=== PATIENT | female | born 1945 | race Caucasian/White ===

== ENCOUNTER → 2023-09-10 13:15 | Outpatient (REF) | payer OTHER, SELFPAY | LOC: RAD 13:15 | PROVIDERS: ATTENDING PHYSICIAN Surgery Vascular Surgery; FAMILY PHYSICIAN Family Medicine | DX: I65.22 Occlusion and stenosis of left carotid artery (principal); I65.21 Occlusion and stenosis of right carotid artery | CPT/HCPCS: 93880 ==

== ENCOUNTER → 2024-10-05 13:01 | Outpatient (REF) | payer OTHER, SELFPAY | LOC: RAD 13:01 | PROVIDERS: ATTENDING PHYSICIAN Surgery Vascular Surgery; FAMILY PHYSICIAN Family Medicine | DX: I65.22 Occlusion and stenosis of left carotid artery (principal); I65.21 Occlusion and stenosis of right carotid artery | CPT/HCPCS: 93880 ==

== ENCOUNTER 2025-05-23 22:24 | Inpatient (IN) | payer OTHER, SELFPAY ==
[2025-05-23] VITALS (11 sets, daily range): BP systolic 145–225; BP diastolic 77–148; BMI 29.5
[2025-05-23 18:28] LABS: Hematocrit 45.6 % (37.0-47.0); Hemoglobin 14.8 g/dL (12.0-16.0); Mean Corp Hgb Conc. 32.5 g/dL (33.0-37.0); Mean Corpuscular Volume 94.0 fL (81.0-99.0); Nucleated Red Blood Cells % 0 %; Platelet Count 254 10^3/uL (130-400); Red Cell Dist. Width 13.2 % (11.5-14.5)
[2025-05-23 18:39] LABS: INR 1.07; PT 14.2 Sec (11.4-14.6)
[2025-05-23 18:40] LABS: APTT 31.4 Sec (23.4-35.0)
--- NOTE | 2025-05-23 18:51 | ED.GENMED ---
History of Present Illness
General
Chief Complaint: Breathing Problem
Source: patient
Exam Limitations: none
Time Seen by Provider: 05/23/25 18:41
History of Present Illness
History of Present Illness:
See MDM
Past History
Past History
ED Past Medical History: Arrthythmia, HTN, Hypercholesterolemia, Valvular disease (Mitral valve prolapse) and Psychiatric (Anxiety)
ED Past Surgical History: Appendectomy and Gynecological (Hysterectomy)
Social History
Tobacco: Non-smoker
Alcohol: None
Personal:
Living: with family
Family History
Family History: Hypertension; Negative Early CAD or Sudden
Phy Exam
Physical Exam
Physical Exam:
See MDM
Scores
Heart Failure Risk
Heart Failure Risk Score: Not Applicable
Course
Orders/Labs/Results
Orders:
Orders
05/23/25 17:40
Electrocardiogram (*1) Urgent
Reason for Study: Chest Pain
EKG- Treatment ONCE
05/23/25 18:17
Complete Blood Count/With Diff Urgent
Comprehensive Metabolic Panel Urgent
PTT Urgent
Prothrombin Time Urgent
Troponin I Urgent
05/23/25 18:52
Diltiazem HCl [Cardizem] 15 mg IV NOW STA
05/23/25 19:38
CR Chest - 2 Views Urgent
Comment:
Reason For Exam: SOB
05/23/25 20:39
Doxycycline [Vibramycin] 100 mg PO NOW STA
Metoprolol Xl [Toprol Xl] 25 mg PO NOW STA
05/23/25 20:44
Apixaban [Eliquis] 5 mg PO ONCE ONE
05/23/25 21:39
Ondansetron Injectable [Zofran] 4 mg IV NOW STA
Abnormal Lab Results
05/23/25
18:17
MCHC 32.5 L g/dL
(33.0-37.0)
Absolute Neuts (auto) 6.9 H 10^3/uL
(1.4-6.5)
Absolute Monos (auto) 1.0 H 10^3/uL
(0.1-0.6)
Lymphocytes % 17.3 L %
(20.5-51.1)
Monocytes % 10.1 H %
(1.7-9.3)
Sodium 134 L mmol/L
(135-145)
BUN 18 H mg/dl
(7-17)
Creatinine 1.1 H mg/dL
(0.6-1.0)
Glucose 120 H mg/dl
(70-99)
AST 74 H U/L
(14-36)
ALT 89 H U/L
(0-35)
05/23/25 18:17
05/23/25 18:17
Vital Signs
Initial and Last Documented VS:
Initial Vital Signs
Temp Pulse Resp Pulse Ox
97.7 F 124 20 97
05/23/25 17:41 05/23/25 17:41 05/23/25 17:41 05/23/25 17:41
Last Documented Vital Signs
Temp Pulse Resp BP Pulse Ox
97.7 F 105 18 159/109 94
05/23/25 17:41 05/23/25 21:06 05/23/25 21:06 05/23/25 20:51 05/23/25 20:52
MDM/Problems Addressed
Differential Diagnosis Includes:
Note:
CHIEF COMPLAINT(S)
Shortness of breath.
HISTORY OF PRESENT ILLNESS
The patient is an 80-year-old female with a history of atrial fibrillation, who presents with shortness of breath. The symptoms started the day before the visit, initially sporadic, but progressively worsened to the point where the patient felt
unable to take a deep breath. She reports a flutter-like sensation but initially attributed her symptoms to pulmonary issues. She underwent an ablation approximately 10 years ago and is not currently on any blood thinners. The patient recalls
experiencing similar symptoms, such as elevated blood pressure and breathing difficulties, during prior episodes of atrial fibrillation. She is on propranolol, a beta-darya, but notes right foot swelling with no accompanying leg or calf pain.
There are no reported fevers, coughs, chest pain, or sputum production. The patient has not screened for pneumonia or blood clots, but is aware these symptoms may indicate cardiac-related issues.
I did question her elevated blood pressure. Patient states she stopped taking her amlodipine on her own.
PHYSICAL EXAM
General: Alert, no acute distress.
Skin: Warm, dry.
Head: Normocephalic, atraumatic
Neck: Appears supple, trachea midline.
Eyes, Ears, Nose, Mouth, and Throat: Moist mucous membranes
Cardiovascular: No signs of cyanosis. Tachycardic and irregular
Respiratory: Respirations are non-labored. Lungs clear
Abdomen: Non-distended
Musculoskeletal: No deformities. No calf or thigh tenderness or swelling
Neurological: No focal neurological deficit observed.
Psychiatric: Cooperative, appropriate mood and affect.
ELECTROCARDIOGRAM (EKG)
My independent EKG interpretation is consistent with atrial fibrillation.
PLAN
1. Administer a dose of diltiazem to control the heart rate.
2. Perform a chest X-ray to rule out pneumonia or other pulmonary anomalies.
3. Re-evaluate for the potential need for a different beta-darya and anticoagulation therapy upon stabilization.
DIFFERENTIAL DIAGNOSIS
The Differential Diagnosis includes, in no particular order and is not limited to:
- Atrial Fibrillation
- Pneumonia
- Pulmonary Embolism
- Chronic Obstructive Pulmonary Disease (COPD)
- Congestive Heart Failure
- Valvular Heart Disease
- Hyperthyroidism
- Anemia
- Anxiety Disorder
- Myocardial Infarction
SUMMARY OF ENCOUNTER
The patient was seen in the emergency department due to acute shortness of breath, believed to be secondary to a recurrence of atrial fibrillation. Management focused on controlling the heart rate using diltiazem and ensuring no underlying pulmonary
cause through a chest X-ray. The return of atrial fibrillation led to considerations for reinitiating anticoagulation and potential changes in beta-darya therapy.
DISPOSITION
Admit
ASSESSMENT
Atrial fibrillation recurrence resulting in symptomatic shortness of breath.
EMERGENCY TREATMENTS ADMINISTERED
Diltiazem administered to control the heart rate.
MEDICATION RECONCILIATION
- One dose of diltiazem was administered.
- Prescribed propranolol.
MEDICAL DECISION MAKING
- Complexity of Data Reviewed: Chronic conditions affecting care: atrial fibrillation.
- Data:
- Category 1: My independent interpretation of EKG indicates atrial fibrillation.
- Category 3: Discussion of management with the patients office services manager, Dr. Meeks, for further treatment planning.
Patient initially felt comfortable going home. As she was about to be discharged, her heart rate increased again and she felt uncomfortable. Due to the uncontrolled A-fib, patient started on Cardizem drip. Will admit
*Pulse Oximetry
SaO2: 96
Oxygen Mode of Delivery: Room air
Patient hypoxic: no
*Critical Care Note
Total Time (30-74mins, 75-104mins- exclusive of procedures): Not Applicable
ED Attending Note
-
Portions of this chart may have been created with voice recognition software.� Occasional wrong word or��sound alike� substitutions may have occurred due to the inherent limitations of voice recognition software.
Discharge Plan
Departure
Patient Disposition: Admit
Date of Disposition: 05/23/25
Time of Disposition: 20:49
Admit to: Telemetry
Presentation/result/management discussed w/ accepting MD/DO: Hospitalist
Patient with high blood pressure during this ER visit?: Yes
Discharge Problem:
Afib, PNA (pneumonia)
Instructions: Chest Pain DCA Follow Up, BLOOD PRESSURE
Prescriptions:
New
Eliquis 5 mg tablet
5 mg PO BID Qty: 60 0RF
doxycycline hyclate 100 mg capsule
100 mg PO BID Qty: 14 0RF
metoprolol succinate [Toprol XL] 25 mg tablet extended release 24 hr
25 mg PO BID Qty: 60 0RF
No Action
alprazolam 0.5 MG tablet
0.5 mg PO TIDPRN PRN (Reason: anxiety)
Patient Comments:
07/04/2021: last filled 06/08/21, 90 tabs for 30 days from [id number]
thyroid (pork) [[place] Thyroid] 30 MG tablet
30 mg PO DAILY
Referrals:
Miri Rodriguez DO [Family Provider, Family Practice]
Interventions
Interventions:
*Risk Screen - Suicide Last Done: 05/23/25 17:41
*General Assessment Last Done: 05/23/25 17:41
*Neglect/Abuse Screening Last Done: 05/23/25 19:42
*ED- Fall Risk Assessment Last Done: 05/23/25 18:24
*ED COVID-19 Vaccine History Last Done: 05/23/25 18:24
*ED Influenza Vaccine History Last Done: 05/23/25 18:24
ED- Cardiac Assessment Last Done: 05/23/25 19:40
ED- Pulmonary Assessment Last Done: 05/23/25 19:40
Discharge Date and Time
Print Language: GUATEMALAN
[2025-05-23 18:52] LABS: ALT (SGPT) 89 U/L (0-35); AST (SGOT) 74 U/L (14-36); Albumin 4.4 g/dl (3.5-5.0); Alkaline Phosphatase 101 U/L (38-126); Blood Urea Nitrogen 18 mg/dl (7-17); Calcium 9.5 mg/dl (8.4-10.2); Carbon Dioxide 25 mmol/L (22-30); Chloride 103 mmol/L (98-107); Estimated Creatinine Clearance 37 ml/min; Glucose 120 mg/dl (70-99); Potassium 4.4 mmol/L (3.5-5.1); Sodium 134 mmol/L (135-145); Total Protein 7.2 g/dl (6.3-8.2); eGFR 50.17
[2025-05-23 19:03] LABS: Troponin I < 0.012 ng/ml
[2025-05-23] MEDS: CARDIZEM 15 MG IV (19:37)
[2025-05-23] MEDS: TOPROL XL 25 MG PO (20:51)
[2025-05-23] MEDS: VIBRAMYCIN 100 MG PO (20:51)
[2025-05-23] MEDS: ELIQUIS 5 MG PO (20:51)
--- NOTE | 2025-05-23 21:00 | EDRN ---
This RN gave pt medication and explained pending discharge. Dr. Rock previously at bedside to discuss going home and plan going forward with new rx. Pt states she still feels sob and 'not sure what to do'. Pulse ox 98 on RA at this time. This RN
to speak with Dr. Rock and discuss plan with patient.
[2025-05-23] MEDS: ZOFRAN 4 MG IV (21:42)
--- NOTE | 2025-05-23 21:58 | HPS.HSE ---
Addendum entered and electronically signed by Jesse Dover MD 05/23/25 22:06:
Correction-patient was given metoprolol succinate 25 mg initially followed by Cardizem bolus but continues to have significant symptoms so Cardizem drip to be started.
Original Note:
Family Physician
-
Family Physician: Miri Rodriguez
Chief Complaint
-
shoortness of breath
History of Present Illness
80-year-old female past medical history of paroxysmal atrial fibrillation s/p post ablation, hypertension, hypercholesteremia, mitral valve prolapse, anxiety, hypothyroidism presenting with shortness of breath since yesterday associated palpitations
and chest pressure. She also has nausea. Denies any cough or fevers or chills. She is not sure if she gained any weight but has some lower extremity edema today.
Her arabic linguist is Dr. Miller.
She denies smoking or alcohol use.
Medical History
Past Medical History
Past Medical History: Reports Other (paroxysmal atrial fibrillation s/p post ablation, hypertension, hypercholesteremia, mitral valve prolapse, anxiety, hypothyroidism)
Past Surgical History: Reports Other (Appendectomy, hysterectomy)
Social History
Tobacco: Non-smoker
Alcohol: None
Drug: None
Family History
Family History: Not pertinent
Allergies / Home Medications
Allergies reflects when Allergies were last updated in [facility].
Home Medications with original date entered in [facility]
Allergy/Medication List:
Allergies
Allergy/AdvReac Type Severity Reaction Status Date / Time
amoxicillin (Amoxicillin) Allergy hives & Verified 05/23/25 17:43
rash
azithromycin Allergy Nausea Verified 05/23/25 17:43
Penicillins Allergy Nausea Verified 05/23/25 17:43
Home Medications
alprazolam 0.5 mg tablet 0.5 mg PO TIDPRN PRN anxiety 08/11/08
thyroid (pork) 30 mg tablet ([place] Thyroid) 30 mg PO DAILY Thyroid 07/04/21
apixaban 5 mg tablet (Eliquis) 5 mg PO BID #60 tabs 05/23/25
doxycycline hyclate 100 mg capsule 100 mg PO BID #14 caps 05/23/25
metoprolol succinate 25 mg tablet,extended release 24 hr (Toprol XL) 25 mg PO BID #60 tabs 05/23/25
Review of Systems
-
History Source: Patient
A 12 point ROS was completed and negative except as noted: Yes
Constitutional: Reports No Symptoms
EENT: Reports No Symptoms
Respiratory: Reports See HPI
Cardiac: Reports See HPI
Abdomen/GI: Reports No Symptoms
: Reports No Symptoms
Musculoskeletal: Reports No Symptoms
Skin: Reports No Symptoms
Neurological: Reports No Symptoms
Endocrine: Reports No Symptoms
Hematologic/Lymphatic: Reports No Symptoms
Psych: Reports No Symptoms
Physical Exam
Vital Signs
Vital Signs
Temp Pulse Resp BP Pulse Ox
97.7 F 105 18 159/109 94
05/23/25 17:41 05/23/25 21:06 05/23/25 21:06 05/23/25 20:51 05/23/25 20:52
Physical Exam
General: Well Developed, Well Nourished and No Apparent Distress
HEENT: NormoCephalic, Moist mucous membranes and Atraumatic
Respiratory: Clear
Cardiac: S1/S2, Irregular Rhythm, Tachycardia and Peripheral Edema; No Murmur or Rub
GI: Soft, Non Tender, Non Distended and Normal Bowel Sounds; No Organomegaly
Rectal: Deferred by Provider
Musculoskeletal: No Clubbing, No Cyanosis and No Edema
Skin: No Rash
Neuro: Nonfocal/grossly intact
Laboratory Results
-
05/23/25 18:17
05/23/25 18:17
Laboratory Results
PT 14.2 Sec (11.4-14.6) 05/23/25 18:17
INR 1.07 05/23/25 18:17
APTT 31.4 Sec (23.4-35.0) 05/23/25 18:17
Total Bilirubin 1.2 mg/dl (0.2-1.3) 05/23/25 18:17
AST 74 U/L (14-36) H 05/23/25 18:17
ALT 89 U/L (0-35) H 05/23/25 18:17
Alkaline Phosphatase 101 U/L (38-126) 05/23/25 18:17
Troponin I < 0.012 ng/ml 05/23/25 18:17
Data Reviewed
-
Lab Data: Labs Reviewed by me
Old Records: Reviewed
Impression/Plan
-
IMPRESSION:
PLAN:
# Symptomatic atrial fibrillation with RVR associated with nausea/vomiting
# History of atrial fibrillation status post ablation 10 years ago
-EKG shows atrial fibrillation with RVR heart rate up to 118
-Troponin negative, continue to trend
-Cardizem drip started
-No longer on Eliquis or metoprolol as per patient
-Check TSH
-Zofran
-Check echo
- Cardiology consulted
# Acute CHF exacerbation secondary to tachycardia
- Chest x-ray shows moderate acute interstitial/alveolar pulm edema, small right and minimal left pleural effusions
- Given doxycycline in emergency room for pneumonia but doubt pneumonia so stopped further antibiotic
-Check I's and O's, daily weights
-Check cardiac BNP
- 40 IV Lasix
# Mild transaminitis likely secondary to hepatic venous congestion
- Continue to monitor
Mild to moderate mitral regurgitation
Mitral valve prolapse
CKD 3
-Patient's renal function at baseline
Hypothyroidism
-Continue thyroid replacement
Anxiety
-Continue Xanax
Hypertension
Full code
DVT prophylaxis-heparin
Cardiac diet
[2025-05-23] MEDS: LASIX 40 MG IV (22:18)
[2025-05-23] MEDS: CARDIZEM 125 IV (22:19)
[2025-05-24] VITALS (9 sets, daily range): BP systolic 125–183; BP diastolic 71–124; PULSE 90; O2SAT 97; BMI 29.5; BMI 28.4
--- NOTE | 2025-05-24 00:30 | PTCARENOTE ---
Patient received from ED via stretcher accompanied by ED staff. AAOX3. Ambulatory to bed. VSS w/o complaints of pain. Placed on tele. Patient oriented to room with call shin within reach.
[2025-05-24 02:01] LABS: Troponin I 0.012 ng/ml
[2025-05-24 06:52] LABS: Hematocrit 41.0 % (37.0-47.0); Hemoglobin 13.3 g/dL (12.0-16.0); Mean Corp Hgb Conc. 32.4 g/dL (33.0-37.0); Mean Corpuscular Volume 93.6 fL (81.0-99.0); Nucleated Red Blood Cells % 0 %; Platelet Count 206 10^3/uL (130-400); Red Cell Dist. Width 13.4 % (11.5-14.5)
[2025-05-24 07:11] LABS: Troponin I < 0.012 ng/ml
[2025-05-24 07:20] LABS: ALT (SGPT) 71 U/L (0-35); AST (SGOT) 37 U/L (14-36); Albumin 3.9 g/dl (3.5-5.0); Alkaline Phosphatase 79 U/L (38-126); Blood Urea Nitrogen 16 mg/dl (7-17); Calcium 8.9 mg/dl (8.4-10.2); Carbon Dioxide 29 mmol/L (22-30); Chloride 102 mmol/L (98-107); Estimated Creatinine Clearance 36 ml/min; Glucose 102 mg/dl (70-99); Potassium 3.8 mmol/L (3.5-5.1); Sodium 136 mmol/L (135-145); Total Protein 6.2 g/dl (6.3-8.2); eGFR 50.17
[2025-05-24] MEDS: ARMOUR THYROID 30 MG PO (08:49)
[2025-05-24] MEDS: ELIQUIS 5 MG PO ×2 (10:30→19:51)
--- NOTE | 2025-05-24 12:11 | CON.CAR ---
Addendum entered and electronically signed by Flakito Hoang MD 05/24/25 19:40:
80-year-old woman with a history of paroxysmal A-fib and PVI in 2013, now with recurrence atrial flutter
PMH: Hypertension, prior atrial fibrillation, status post cryoablation 2013, mitral valve prolapse, bilateral cerebrovascular disease, CKD, hypercholesterolemia, anxiety, migraines, hypothyroidism
PSH: Appendectomy, hysterectomy
Medications on admission: Metoprolol and alprazolam
Rest of history as below.
164/93, pulse now 74, respiratory rate 12, irregular rate and rhythm appears somewhat dyspneic, diminished breath sounds in bases, JVD somewhat elevated, soft systolic murmur at apex, 1+ edema
Chest x-ray possible right lower lobe pneumonia, possible bilateral effusions, mild vascular congestion, atherosclerosis, suspect all due to heart failure
ECG: Atrial flutter with variable conduction
Hemoglobin 13.3 white count 8.9, platelets 206, BUN and creatinine are 16 and 1.1, AST 37, ALT 71, proBNP is 6080, troponin undetectable
Impression:
Acute/subacute HFpEF
recurrent atrial flutter, onset within 1 week
PAF status post cryoablation 2013
CKD 3b
Hypercholesterolemia
Anxiety
Migraines
Hypothyroidism
Hypertension
Other diagnoses as below. Reviewed in detail and agree with findings assessments and recommendations unless otherwise specified
Plan:
She presents with recurrent atrial flutter and presumed HFpEF. She has not been anticoagulated.
She is improved with administration of IV furosemide. Rate is reasonably controlled on diltiazem.
Continue IV furosemide, consider spironolactone, consider SGLT2 antagonist
Continue rate control with metoprolol and IV diltiazem, hopefully to DC diltiazem in the a.m.
Transesophageal echo and cardioversion recommended, procedure, alternatives, risks and benefits reviewed.
She agrees to proceed in AM.
Original Note:
Consultation
Consultation Request
Date/Time Consultation Requested: 05/24/2025 0058
Date/Time Consultation Performed: 05/24/2025, 1212
Requesting Provider: Dr. Dover
Performing Provider: ALFONZO Bosch for Dr. Hoang
Reason for Consultation: A-fib
Medical History
-
Chief Complaint: Shortness of breath
History of Present Illness:
80-year-old female with past medical history paroxysmal atrial fibrillation status post ablation in 2013, hypertension, hyperlipidemia, mitral valve prolapse, bilateral carotid stenosis, chronic renal insufficiency presents to [facility] ER 05/23/2025 with
shortness of breath, palpitations, chest pressure, nausea. She thought she had worsening pneumonia. Upon presentation to ED, patient found to be in A-fib with rapid ventricular response. Patient reports she has been under increased stress in past
week due to her recently being diagnosed and hospitalized with cancer.
She was started on a Cardizem drip and cardiology consulted for A-fib management.
In outpatient setting she had only been taking propranolol 80 mg daily. She has not been on oral anticoagulation. She was last seen by cardiology (Dr. Aragon) in 2019 at which time she was on multiple antihypertensives (amlodipine, losartan,
Cardizem, propranolol) and Zetia for hyperlipidemia. She has had myalgias on multiple statins including Lipitor, Crestor, Zocor. She was advised to start Praluent but never started it.
ED evaluation 05/23/2025:
CXR: Moderate acute interstitial and alveolar pulmonary edema, small right and minimal left pleural effusions
Troponin: <0.012--> 0.012--> less than 0.012--> pending
proBNP 6080
BUN/creatinine 18/1.1, NA 134, K4.4, AST/ALT 74/89, TSH 2.54
EKG: Atrial fibrillation 117 bpm
Patient started on diltiazem drip for rate control and started on Eliquis 5 mg twice daily. Given one-time dose Lasix 40 mg IV.
Currently feels shortness of breath has improved.
Past medical history:
Paroxysmal atrial fibrillation status post cryo PVI 04/04/2014, Dr. Mcmanus
Hypertension
Mitral valve prolapse
bilateral carotid artery stenosis
renal insufficiency
dyslipidemia
tremor
Anxiety
Migraines
Hyperthyroidism
Past Medical History
Past Medical History: Other (As above)
Past Surgical History: Other (PVI 2013, Appendectomy, hysterectomy)
Social History
Tobacco: Non-Smoker
Alcohol: None
Personal:
Living: With Family
Family History
Family History: Other (Father with CAD status post bypass in 80s, mother with CAD and MD)
Allergies / Home Medications
Allergy/AdvReac Type Severity Reaction Status Date / Time
amoxicillin (Amoxicillin) Allergy hives & Verified 05/23/25 17:43
rash
azithromycin Allergy Nausea Verified 05/23/25 17:43
Penicillins Allergy Nausea Verified 05/23/25 17:43
�Medication �Instructions �Recorded �Confirmed �Type
alprazolam 0.5 mg tablet 0.5 mg PO TIDPRN PRN anxiety 08/11/08 05/23/25 History
thyroid (pork) 30 mg tablet 30 mg PO DAILY Thyroid 07/04/21 05/23/25 History
([place] Thyroid)
apixaban 5 mg tablet (Eliquis) 5 mg PO BID #60 tabs 05/23/25 Rx
doxycycline hyclate 100 mg capsule 100 mg PO BID #14 caps 05/23/25 Rx
metoprolol succinate 25 mg 25 mg PO BID #60 tabs 05/23/25 Rx
tablet,extended release 24 hr
(Toprol XL)
Review of Systems
-
History Source: Patient
Constitutional: No Symptoms
Physical Exam
Vital Signs
Temp Pulse Resp BP Pulse Ox
97.5 F 74 12 164/93 95
05/24/25 07:00 05/24/25 07:00 05/24/25 07:00 05/24/25 07:00 05/24/25 08:30
Lab Results
05/24/25 06:37
05/24/25 06:37
Troponin I < 0.012 ng/ml 05/24/25 06:37
Bis-M-Rqrfaupzass Pept 6080 pg/ml 05/23/25 18:17
GEN: No distress, awake, Ox3
HEENT: supple, anicteric, mmm
LUNGS: CTA, no wheezes/rales
CV: Irregularly irregular, no murmur
ABD: soft, BS+, NT/ND
EXT: No edema
NEURO: Gross non-focal
SKIN: No rash
Impression / Plan
-
PCP: Dr. Rodriguez
Primary american indian policy specialist: Last seen by Dr. Aragon in 2019
Impression:
Atrial fibrillation s/p PVI 2013
Shortness of breath
Acute heart failure, EF preserved in past
Hypertension
Hyperlipidemia
Chronic kidney disease, 3B
Hypothyroidism
Previous cardiovascular studies:
Echo 07/30/2022: Normal LV/RV size and function, EF 55 to 60%, mild septal hypertrophy, prolapse of the posterior mitral leaflet with mild to moderate MR, mild TR, estimated PAP 31 mmHg
Lexiscan nuclear stress test 08/03/2019: Fixed defects in the basal inferior segment consistent with soft tissue attenuation
Plan:
80-year-old female w/ PMH afib s/p cryoablation in 2013, hypertension, hyperlipidemia, mitral valve prolapse, bilateral carotid stenosis, CKD presents to ED with SOB, palps, chest pressure, nausea, found to be in A-fib with rapid ventricular
response also with concern for acute HF with proBNP 6080.
A-fib:
-Currently rate controlled on a Cardizem 5 mg/hr
-started Eliquis 5 mg bid for anticoagulation. Of note she had not been on Eliquis in outpatient setting prior to admission.
-prior history of afib with PVI in 2014. Reports no know afib since then
-echo done today-pending
-rec: ALEISHA/ CV to restore sinus rhythm
-In outpatient setting on propranolol 80 mg daily, resume for improved rate control as well as hypertension control
-TSH 2.5
Acute heart failure preserved EF HF
- Chest x-ray with moderate acute interstitial and alveolar pulmonary edema
- Received IV Lasix x 1 with 5 pound diuresis overnight if scales accurate. Symptomatically shortness of breath has improved
-Not on outpatient diuretic
-Echo today to assess LV function
-Creatinine 1.1
Data Reviewed
-
EKG: Tracing Personally Visualized and interpreted
Medical Tests (Nuc Med, Echo etc): Image Personally Visualized and interpreted
Labs: Labs Reviewed by me
Old Records: Reviewed
[2025-05-24] MEDS: CARDIZEM 125 IV (12:49)
[2025-05-24 13:19] LABS: Troponin I < 0.012 ng/ml
--- NOTE | 2025-05-24 14:50 | W.PN.HOSP.TC ---
Today's Communication/Plan
-
see plan below
Assessment / Plan
Assessment / Plan
Assessment:
New onset parox A. Fib with RVR
Hx of A. Fib s/p ablation 10 years ago
- TSH normal
- Echo: pending
- continue Cardizem drip
- continue Eliquis 5mg BID; [id number] score 4 (age, female, HTN)
- DCA cards consulted
Acute HFpEF (Suspected) in setting of A. Fib, tachyarrhythmia
- CXR: with moderate acute Interstitial/alveolar pulm edema.
- s/p IV Lasix x 1
Elevated LFTs in setting of passive congestion from CHF
- monitor AM labs
Mild to moderate mitral regurgitation
Mitral valve prolapse
- Echo: pending
CKD 3b
- Patient's renal function at baseline
Hypothyroidism
- continue thyroid replacement
Anxiety
- continue Xanax
Essential HTN
DVT ppx: Eliquis
Code: Full
Anticipated Discharge: 24 - 48 hours
Subjective/Interval History
-
Date of Service: May 24, 2025
resting comfortably, no complaints at present
in rate controlled A. Fib
Objective Data
-
Labs:
Laboratory Results
05/24/25
06:37
WBC 8.9
Hgb 13.3
Hct 41.0
Plt Count 206
Sodium 136
Potassium 3.8
Chloride 102
Carbon Dioxide 29
BUN 16
Creatinine 1.1 H
Glucose 102 H
Calcium 8.9
Total Bilirubin 1.7 H
AST 37 H
ALT 71 H
Alkaline Phosphatase 79
Vital Signs:
Vital Signs
Temp Pulse Resp BP Pulse Ox
97.5 F 74 12 164/93 95
05/24/25 07:00 05/24/25 07:00 05/24/25 07:00 05/24/25 07:00 05/24/25 08:30
I&O
05/23/25 05/24/25 05/25/25
05:59 06:59 06:59
Output Total 800 / 800
Balance -800 / -800
Physical Exam
-
General: No Apparent Distress
Respiratory: Clear to Auscultation; Negative Wheezes or Rales
Cardiac: Irregular Rhythm
GI: Soft and Nontender
Neuro: AO x 3
Psych: Calm
Data Reviewed
-
Total Time Spent with Patient (in minutes): 45
Labs: Labs Reviewed by me
--- NOTE | 2025-05-24 17:27 | CM ---
IA completed. IMM given in ED on 05/23/25. Pt is independent in ADLs and IADLs. Pt lives with her in a 2 story house with 1 step at the entrance and 12 steps inside. Full BR is on the 2nd floor. NO hx of HH, home O2 or SNF. No insecurities
identified. DME: grab bars near toilet and in shower. Confirmed PCP, Rx, insurance and drug coverage.
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
New onset parox A. Fib with RVR. Continues on Cardizem gtt
PCP: Miri Astorga
[facility]
Plan: Home with VN vs Home with no needs
[2025-05-24] MEDS: KCL 40 MEQ PO (19:50)
[2025-05-24] MEDS: LASIX 40 MG IV (19:51)
[2025-05-24 20:20] LABS: Troponin I < 0.012 ng/ml
[2025-05-25 03:41] VITALS: BP 157/93
[2025-05-25 06:00] VITALS: BMI 26.7
[2025-05-25 07:00] VITALS: BP 140/82
[2025-05-25] MEDS: ARMOUR THYROID 30 MG PO (08:06)
[2025-05-25] MEDS: ELIQUIS 5 MG PO ×2 (08:06→20:23)
--- NOTE | 2025-05-25 09:35 | W.PN.HOSP.TC ---
Today's Communication/Plan
-
ALEISHA/CV today
Assessment / Plan
Assessment / Plan
Assessment:
New onset parox A. Fib with RVR
Hx of A. Fib s/p ablation 10 years ago
- TSH normal
- Echo: Normal left ventricular size and systolic function, ejection fraction 55-60%. Mitral annular calcification, mild mitral leaflet thickening, mitral valve prolapse not seen, mild mitral regurgitation and normal left atrium. Aortic sclerosis
without stenosis or regurgitation. Normal right heart, pulmonary artery systolic pressure is 28 mmHg. Atherosclerosis of the aortic arch is present. In July 2022, ejection fraction was 55-60%, there was posterior mitral leaflet prolapse with mild
to moderate mitral regurgitation, and pulmonary artery systolic pressure was 31 mmHg in sinus rhythm.
- continue Cardizem drip
- continue Eliquis 5mg BID; [id number] score 4 (age, female, HTN)
- for ALEISHA/CV today
- DCA cards following
Acute HFpEF (Suspected) in setting of A. Fib, tachyarrhythmia
- CXR: with moderate acute Interstitial/alveolar pulm edema.
- s/p IV Lasix course
Elevated LFTs in setting of passive congestion from CHF
- monitor AM labs
Mild to moderate mitral regurgitation
Mitral valve prolapse
- Echo: as above
CKD 3b
- Patient's renal function at baseline
Hypothyroidism
- continue thyroid replacement
Anxiety
- continue Xanax
Essential HTN
DVT ppx: Eliquis
Code: Full
Anticipated Discharge: Within 24 hours
Subjective/Interval History
-
Date of Service: May 25, 2025
remains in A. Fib, HRS in 110s
denies any cp or SOB
for ALEISHA/CV today
Objective Data
-
Labs:
Laboratory Results
05/25/25
09:19
WBC Pending
Hgb Pending
Hct Pending
Plt Count Pending
Sodium Pending
Potassium Pending
Chloride Pending
Carbon Dioxide Pending
BUN Pending
Creatinine Pending
Glucose Pending
Calcium Pending
Vital Signs:
Vital Signs
Temp Pulse Resp BP Pulse Ox
97.7 F 108 16 140/82 95
05/25/25 07:00 05/25/25 07:00 05/25/25 07:00 05/25/25 07:00 05/25/25 08:00
I&O
05/24/25 05/25/25 05/26/25
06:59 06:59 06:59
Intake Total 1080 / 1080
Output Total 800 / 800 3475 / 3475
Balance -800 / -800 -2395 / -2395
Physical Exam
-
General: No Apparent Distress
HEENT: Normocephalic and Atraumatic
Cardiac: Irregular Rhythm and Tachycardic
GI: Soft and Nontender
Neuro: AO x 3
Psych: Calm
Data Reviewed
-
Total Time Spent with Patient (in minutes): 42
Labs: Labs Reviewed by me
[2025-05-25 09:36] LABS: Hematocrit 45.2 % (37.0-47.0); Hemoglobin 14.8 g/dL (12.0-16.0); Mean Corp Hgb Conc. 32.7 g/dL (33.0-37.0); Mean Corpuscular Volume 93.4 fL (81.0-99.0); Platelet Count 224 10^3/uL (130-400); Red Cell Dist. Width 13.3 % (11.5-14.5)
--- NOTE | 2025-05-25 10:52 | ITS.CL.CARDI ---
Environmental Engineering Intern - Cardioversion
Cardioversion
Procedure Report:
Date of Procedure: 05/25/25
Procedure: Cardioversion
Indication: Symptomatic atrial flutter
Performing Physician: Leroy Lie MD
Technique: The patient was brought to the holding area. Signed informed consent was obtained. A time out was called and performed. The patient was anesthetized by the anesthesia service. Anticoagulation status was reviewed and appropriate. R2 pads
were placed anteriorly and posteriorly. A 200 J synchronized biphasic shock restored normal sinus rhythm without significant bradycardia. There were no complications.
Conclusion: Uncomplicated cardioversion from atrial flutter to sinus rhythm.
Recommendation: Routine post cardioversion care. Continue termite control servicer anticoagulation.
[2025-05-25 11:00] VITALS: BP 138/82
[2025-05-25] MEDS: TOPROL XL 50 MG PO ×2 (12:18→20:23)
[2025-05-25 12:55] LABS: Blood Urea Nitrogen 21 mg/dl (7-17); Calcium 9.2 mg/dl (8.4-10.2); Carbon Dioxide 32 mmol/L (22-30); Chloride 102 mmol/L (98-107); Estimated Creatinine Clearance 35 ml/min; Glucose 106 mg/dl (70-99); Potassium 4.7 mmol/L (3.5-5.1); Sodium 138 mmol/L (135-145); eGFR 50.17
--- NOTE | 2025-05-25 13:27 | W.PN.CARDCBS ---
Today's Communication / Plan
-
Overall did well status post ALEISHA cardioversion and back in sinus rhythm
Continue Toprol and Eliquis. DC Cardizem
Hold diuresis for 24 hours and reassess in AM.
Hopeful for discharge in the
Impression / Plan
-
PCP: Dr. Rodriguez
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 Aragon in 2019
Impression:
Atrial fibrillation s/p PVI 2013 s/p ALEISHA/CV 05/25
Shortness of breath
Acute heart failure, EF preserved in past
Hypertension
Hyperlipidemia
Chronic kidney disease, 3B
Hypothyroidism
Previous cardiovascular studies:
Echo 07/30/2022: Normal LV/RV size and function, EF 55 to 60%, mild septal hypertrophy, prolapse of the posterior mitral leaflet with mild to moderate MR, mild TR, estimated PAP 31 mmHg
Lexiscan nuclear stress test 08/03/2019: Fixed defects in the basal inferior segment consistent with soft tissue attenuation
Plan:
80-year-old female w/ PMH afib s/p cryoablation in 2013, hypertension, hyperlipidemia, mitral valve prolapse, bilateral carotid stenosis, CKD presents to ED with SOB, palps, chest pressure, nausea, found to be in A-fib with rapid ventricular
response also with concern for acute HF with proBNP 6080.
ALEISHA cardioversion restored sinus rhythm today. LVEF is preserved with moderate mitral regurgitation
We will DC IV Cardizem and start Toprol 50 mg p.o. twice daily. Continue Eliquis
She has lost about 10 pounds and has diuresed well. Hold Lasix for today
She may need low-dose Lasix upon discharge. Creatinine stable at 1.1
Likely for discharge in a.m.
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
Subjective
Date of Service: May 25, 2025
Overall did well and back in sinus rhythm
Objective
Labs:
05/25/25 09:19
05/25/25 11:55
Labs
Hgb 14.8 g/dL (12.0-16.0) 05/25/25 09:19
Hct 45.2 % (37.0-47.0) 05/25/25 09:19
Plt Count 224 10^3/uL (130-400) 05/25/25 09:19
PT 14.2 Sec (11.4-14.6) 05/23/25 18:17
INR 1.07 05/23/25 18:17
APTT 31.4 Sec (23.4-35.0) 05/23/25 18:17
Sodium 138 mmol/L (135-145) 05/25/25 11:55
Potassium 4.7 mmol/L (3.5-5.1) 05/25/25 11:55
BUN 21 mg/dl (7-17) H 05/25/25 11:55
Creatinine 1.1 mg/dL (0.6-1.0) H 05/25/25 11:55
Glucose 106 mg/dl (70-99) H 05/25/25 11:55
Troponins
05/23/25 05/24/25 05/24/25
18:17 01:30 06:37
Troponin I < 0.012 0.012 < 0.012
05/24/25 05/24/25
12:46 19:25
Troponin I < 0.012 < 0.012
Vital Signs and I&O:
Vital Signs
Temp Pulse Resp BP Pulse Ox
97.7 F 73 16 138/82 96
05/25/25 11:00 05/25/25 11:00 05/25/25 11:00 05/25/25 11:00 05/25/25 11:00
Vital Signs
Temp Pulse Resp BP Pulse Ox
97.7 F 73 16 138/82 96
05/25/25 11:00 05/25/25 11:00 05/25/25 11:00 05/25/25 11:00 05/25/25 11:00
Intake & Output
05/23/25 05/24/25 05/25/25 05/26/25
05:59 06:59 06:59 06:59
Intake Total 1080 / 1080
Output Total 800 / 800 3475 / 3475
Balance -800 / -800 -2395 / -2395
Physical Exam
Physical Exam
GEN: No distress, awake, Ox3
HEENT: supple, anicteric, mmm
LUNGS: CTA, no wheezes/rales
CV: Reg, S1/S2, 1/6 syst LSB, no gallop
ABD: soft, BS+, NT/ND
EXT: No edema
NEURO: Gross non-focal
SKIN: No rash
[2025-05-25 15:00] VITALS: BP 152/70
--- NOTE | 2025-05-25 15:13 | CM ---
Chart reviewed. Per hospitalist poss d/c tomorrow
Therapy rec OP PT, hospitalist left script in the chart
Plan: Home w/ OP PT
[2025-05-25 19:36] VITALS: BP 132/74
[2025-05-25 23:28] VITALS: BP 129/80
[2025-05-26 03:59] VITALS: BP 142/78
[2025-05-26 06:00] VITALS: BMI 27.5
[2025-05-26 07:00] VITALS: BP 154/82
[2025-05-26 08:14] LABS: Hematocrit 41.8 % (37.0-47.0); Hemoglobin 13.3 g/dL (12.0-16.0); Mean Corp Hgb Conc. 31.8 g/dL (33.0-37.0); Mean Corpuscular Volume 98.6 fL (81.0-99.0); Platelet Count 217 10^3/uL (130-400); Red Cell Dist. Width 13.4 % (11.5-14.5)
[2025-05-26 08:57] LABS: Blood Urea Nitrogen 21 mg/dl (7-17); Calcium 9.1 mg/dl (8.4-10.2); Carbon Dioxide 29 mmol/L (22-30); Chloride 101 mmol/L (98-107); Estimated Creatinine Clearance 36 ml/min; Glucose 96 mg/dl (70-99); Potassium 3.9 mmol/L (3.5-5.1); Sodium 134 mmol/L (135-145); eGFR 50.17
[2025-05-26] MEDS: ARMOUR THYROID 30 MG PO (08:57)
[2025-05-26] MEDS: TOPROL XL 50 MG PO (08:58)
[2025-05-26] MEDS: ELIQUIS 5 MG PO (08:58)
--- NOTE | 2025-05-26 10:03 | W.PN.HOSP.TC ---
Today's Communication/Plan
-
dc home today
Assessment / Plan
Assessment / Plan
Assessment:
New onset parox A. Fib with RVR
Hx of A. Fib s/p ablation 10 years ago
- TSH normal
- Echo: Normal left ventricular size and systolic function, ejection fraction 55-60%. Mitral annular calcification, mild mitral leaflet thickening, mitral valve prolapse not seen, mild mitral regurgitation and normal left atrium. Aortic sclerosis
without stenosis or regurgitation. Normal right heart, pulmonary artery systolic pressure is 28 mmHg. Atherosclerosis of the aortic arch is present. In July 2022, ejection fraction was 55-60%, there was posterior mitral leaflet prolapse with mild
to moderate mitral regurgitation, and pulmonary artery systolic pressure was 31 mmHg in sinus rhythm.
- s/p Cardizem drip
- s/p ALEISHA/CV 05/25 with bahai to NSR
- DC on Toprol BID
- continue Eliquis 5mg BID; [id number] score 4 (age, female, HTN)
- DCA cards follow up with Dr. Ahumada
Acute HFpEF (Suspected) in setting of A. Fib, tachyarrhythmia
- CXR: with moderate acute Interstitial/alveolar pulm edema.
- s/p IV Lasix course; dc on oral Lasix 20mg daily
Elevated LFTs in setting of passive congestion from CHF
Mild to moderate mitral regurgitation
Mitral valve prolapse
- Echo: as above
CKD 3b
- Patient's renal function at baseline
Hypothyroidism
- continue thyroid replacement
Anxiety
- continue Xanax
Essential HTN
DVT ppx: Eliquis
Code: Full
More than 30 minutes spent in discharge including
Final examination of the patient
Summarizing hospital stay
Instructions for continuing care to all relevant caregivers
Preparation of discharge records, prescriptions, and referral forms
Total time spent (in minutes): 41
Anticipated Discharge: Today
Subjective/Interval History
-
Date of Service: May 26, 2025
s/p ALEISHA/CV with bahai to NSR yesterday
remains in NSR
and denies CP or SOB
Objective Data
-
Labs:
Laboratory Results
05/26/25
07:39
WBC 8.0
Hgb 13.3
Hct 41.8
Plt Count 217
Sodium 134 L
Potassium 3.9
Chloride 101
Carbon Dioxide 29
BUN 21 H
Creatinine 1.1 H
Glucose 96
Calcium 9.1
Vital Signs:
Vital Signs
Temp Pulse Resp BP Pulse Ox
97.3 F 70 12 154/82 97
05/26/25 07:00 05/26/25 07:00 05/26/25 07:00 05/26/25 08:58 05/26/25 07:00
I&O
05/25/25 05/26/25 05/27/25
06:59 06:59 06:59
Intake Total 1080 / 1080 480 / 480
Output Total 3475 / 3475
Balance -2395 / -2395 480 / 480
Physical Exam
-
General: No Apparent Distress
HEENT: Normocephalic and Atraumatic
Respiratory: Negative Wheezes
Cardiac: Regular Rhythm and S1/S2
GI: Soft and Nontender
Genito-urinary: No Costovertebral Tender
Neuro: AO x 3
Psych: Calm
Data Reviewed
-
Total Time Spent with Patient (in minutes): 44
Labs: Labs Reviewed by me
--- NOTE | 2025-05-26 10:03 | W.PN.CARDCBS ---
Today's Communication / Plan
-
Remains in sinus rhythm. Continue Toprol 50 mg p.o. twice daily. Continue Eliquis 5 mg p.o. twice daily
Volume status is much improved. Will discharge on Lasix 20 mg daily.
Will arrange follow-up
Impression / Plan
-
PCP: Dr. Rodriguez
Primary member service specialist: Last seen by Dr. Aragon in 2019
Impression:
Atrial fibrillation s/p PVI 2013 s/p ALEISHA/CV 05/25
Shortness of breath
Acute heart failure, EF preserved in past
Hypertension
Hyperlipidemia
Chronic kidney disease, 3B
Hypothyroidism
Previous cardiovascular studies:
Echo 07/30/2022: Normal LV/RV size and function, EF 55 to 60%, mild septal hypertrophy, prolapse of the posterior mitral leaflet with mild to moderate MR, mild TR, estimated PAP 31 mmHg
Lexiscan nuclear stress test 08/03/2019: Fixed defects in the basal inferior segment consistent with soft tissue attenuation
Plan:
80-year-old female w/ PMH afib s/p cryoablation in 2013, hypertension, hyperlipidemia, mitral valve prolapse, bilateral carotid stenosis, CKD presents to ED with SOB, palps, chest pressure, nausea, found to be in A-fib with rapid ventricular
response also with concern for acute HF with proBNP 6080.
ALEISHA cardioversion restored sinus rhythm today. LVEF is preserved with moderate mitral regurgitation
We discharged on Toprol 50 mg p.o. twice daily
Creatinine stable at 1.1. Will start Lasix 20 mg p.o. daily
Okay for discharge from cardiology standpoint
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
Subjective
Date of Service: May 26, 2025
Overall looks good. Remains in sinus rhythm. No chest pains or shortness of breath
Objective
Labs:
05/26/25 07:39
05/26/25 07:39
Labs
Hgb 13.3 g/dL (12.0-16.0) 05/26/25 07:39
Hct 41.8 % (37.0-47.0) 05/26/25 07:39
Plt Count 217 10^3/uL (130-400) 05/26/25 07:39
PT 14.2 Sec (11.4-14.6) 05/23/25 18:17
INR 1.07 05/23/25 18:17
APTT 31.4 Sec (23.4-35.0) 05/23/25 18:17
Sodium 134 mmol/L (135-145) L 05/26/25 07:39
Potassium 3.9 mmol/L (3.5-5.1) 05/26/25 07:39
BUN 21 mg/dl (7-17) H 05/26/25 07:39
Creatinine 1.1 mg/dL (0.6-1.0) H 05/26/25 07:39
Glucose 96 mg/dl (70-99) 05/26/25 07:39
Troponins
05/23/25 05/24/25 05/24/25
18:17 01:30 06:37
Troponin I < 0.012 0.012 < 0.012
05/24/25 05/24/25
12:46 19:25
Troponin I < 0.012 < 0.012
Vital Signs and I&O:
Vital Signs
Temp Pulse Resp BP Pulse Ox
97.3 F 70 12 154/82 97
05/26/25 07:00 05/26/25 07:00 05/26/25 07:00 05/26/25 08:58 05/26/25 07:00
Vital Signs
Temp Pulse Resp BP Pulse Ox
97.3 F 70 12 154/82 97
05/26/25 07:00 05/26/25 07:00 05/26/25 07:00 05/26/25 08:58 05/26/25 07:00
Intake & Output
05/24/25 05/25/25 05/26/25 05/27/25
06:59 06:59 06:59 06:59
Intake Total 1080 / 1080 480 / 480
Output Total 800 / 800 3475 / 3475
Balance -800 / -800 -2395 / -2395 480 / 480
Physical Exam
Physical Exam
GEN: No distress, awake, Ox3
HEENT: supple, anicteric, mmm
LUNGS: CTA, no wheezes/rales
CV: Reg, S1/S2, 1/6 syst LSB, no gallop
ABD: soft, BS+, NT/ND
EXT: No edema
NEURO: Gross non-focal
SKIN: No rash
--- NOTE | 2025-05-26 10:08 | W.DCSUMMARY ---
Discharge Summary
Discharge Data
Date of Admission: 05/23/25
Date of Discharge: 05/26/25
-
Pending Results: No
Hospital Course
80 y/o F past medical history of paroxysmal atrial fibrillation s/p post ablation, hypertension, hypercholesteremia, mitral valve prolapse, anxiety, hypothyroidism presented to ER on 05/23 with SOB, palpitations and chest pressure. She was found to
be in Rapid A. Fib and started on Cardizem drip. She underwent successful ALEISHA/CV procedure on 05/25. She was transitioned to Toprol and Eliquis.
She also had evidence of acute CHF and received IV diuretics doses. She was transitioned to oral Lasix 20mg daily at discharge.
Echo showed: Echo: Normal left ventricular size and systolic function, ejection fraction 55-60%. Mitral annular calcification, mild mitral leaflet thickening, mitral valve prolapse not seen, mild mitral regurgitation and normal left atrium. Aortic
sclerosis without stenosis or regurgitation. Normal right heart, pulmonary artery systolic pressure is 28 mmHg. Atherosclerosis of the aortic arch is present. In July 2022, ejection fraction was 55-60%, there was posterior mitral leaflet prolapse
with mild to moderate mitral regurgitation, and pulmonary artery systolic pressure was 31 mmHg in sinus rhythm.
She was discharged on 05/26 to home. Will have Cardiology followup arranged.
Discharge Plan
-
Patient Disposition: Home (Routine Discharge)
Discharge Diagnosis/Procedures: acute CHF, Rapid Afib s/p ALEISHA/CV 05/25
Condition: Fair
Diet: Low Cholesterol and 2 Gram Sodium
Activity: As tolerated
Other Services: PT
Instructions: *[facility] Heart Failure Instructions
Referrals:
Miri Rodriguez DO [Family Provider, Family Practice]
Prescriptions:
New
Eliquis 5 mg tablet
5 mg PO BID Qty: 60 0RF
(DME) Outpatient physical therapy
See Rx Instructions .Route .MEDSUPPLY Qty: 1 0RF
Rx Instructions:
evaluate and treat. Dx: ambulatory dysfunction
metoprolol succinate 50 mg Tablet Extended Release 24 Hr
50 mg PO BID Qty: 60 0RF
furosemide [Lasix] 20 mg tablet
20 mg PO DAILY Qty: 30 0RF
Continued
alprazolam 0.5 MG tablet
0.5 mg PO TIDPRN PRN (Reason: anxiety)
Patient Comments:
07/04/2021: last filled 06/08/21, 90 tabs for 30 days from [facility]#[id number]
thyroid (pork) [[place] Thyroid] 30 MG tablet
30 mg PO DAILY
Discharge Orders:
Discharge Patient (As Directed); Ordered 05/26/25
Ordered By: Sebastien Silveira
Discharge Date and Time
Print Language: [place]
[2025-05-26 11:00] VITALS: BP 169/93
== END 2025-05-26 14:18 | disposition home or self-care (01) | DRG 291 ==
LOC: 4 EAST ACU 22:24
PROVIDERS: Internal Medicine Cardiovascular Disease; ADMITTING PHYSICIAN Hospitalist; ATTENDING PHYSICIAN Internal Medicine; EMERGENCY PHYSICIAN Student in an Organized Health Care Education/Training Program; FAMILY PHYSICIAN Family Medicine; OTHER PHYSICIAN Internal Medicine Cardiovascular Disease
PROC: 5A2204Z Restoration of Cardiac Rhythm, Single (ICD-10-PCS; 2025-05-25)
PROC: B24BZZ4 Ultrasonography of Heart with Aorta, Transesophageal (ICD-10-PCS; 2025-05-25)
DX: I13.0 Hypertensive heart and chronic kidney disease with heart failure and stage 1 through stage 4 chronic kidney disease, or unspecified chronic kidney disease (principal); I50.31 Acute diastolic (congestive) heart failure; I48.92 Unspecified atrial flutter; E78.00 Pure hypercholesterolemia, unspecified; I48.0 Paroxysmal atrial fibrillation; I34.1 Nonrheumatic mitral (valve) prolapse; F41.9 Anxiety disorder, unspecified; Z79.01 Long term (current) use of anticoagulants; I70.0 Atherosclerosis of aorta; E03.9 Hypothyroidism, unspecified; N18.32 Chronic kidney disease, stage 3b; Z90.710 Acquired absence of both cervix and uterus; Z88.1 Allergy status to other antibiotic agents; Z88.0 Allergy status to penicillin; Z79.899 Other long term (current) drug therapy; Z82.49 Family history of ischemic heart disease and other diseases of the circulatory system
CPT/HCPCS: 71046; 80048; 80053; 83880; 84443; 84484; 85025; 85027; 85610; 85730; 92960; 93005; 93306; 93312; 93320; 93325; 96374; 96375; 97162; 99285

== ENCOUNTER 2025-07-07 14:14 | Emergency (ER) | payer OTHER, SELFPAY ==
[2025-07-07] VITALS (7 sets, daily range): BP systolic 125–200; BP diastolic 69–139; BMI 27.5
[2025-07-07 14:43] LABS: Hematocrit 48.2 % (37.0-47.0); Hemoglobin 15.8 g/dL (12.0-16.0); Mean Corp Hgb Conc. 32.8 g/dL (33.0-37.0); Mean Corpuscular Volume 92.7 fL (81.0-99.0); Nucleated Red Blood Cells % 0 %; Platelet Count 263 10^3/uL (130-400); Red Cell Dist. Width 12.9 % (11.5-14.5)
[2025-07-07 14:46] LABS: INR 1.05; PT 13.5 Sec (11.4-14.6)
[2025-07-07 14:51] LABS: ALT (SGPT) 19 U/L (0-35); AST (SGOT) 24 U/L (14-36); Albumin 4.8 g/dl (3.5-5.0); Alkaline Phosphatase 67 U/L (38-126); Blood Urea Nitrogen 25 mg/dl (7-17); Calcium 9.8 mg/dl (8.4-10.2); Carbon Dioxide 29 mmol/L (22-30); Chloride 102 mmol/L (98-107); Glucose 88 mg/dl (70-99); Potassium 3.9 mmol/L (3.5-5.1); Sodium 139 mmol/L (135-145); Total Protein 7.7 g/dl (6.3-8.2); eGFR 41.06
[2025-07-07 15:02] LABS: Troponin I 0.017 ng/ml
[2025-07-07] MEDS: CARDIZEM 15 MG IV (17:19)
--- NOTE | 2025-07-07 17:55 | ED.GENMED ---
History of Present Illness
<Jenaro Menjivar MD - Last Filed: 07/07/25 20:41>
General
Chief Complaint: Cardiac Symptoms
Time Seen by Provider: 07/07/25 16:30
<Maliha Curry PA-C - Last Filed: 07/07/25 22:26>
History of Present Illness
History of Present Illness:
Lisa is a 80-year-old female past medical history of paroxysmal A-fib who presents complaining of palpitations and 'feeling like she is in A-fib a 'for approximately 36 hours. Denies any lightheadedness or syncope. Is not currently
anticoagulated. Denies any nausea vomiting or other associated symptoms
Past History
<Jenaro Menjivar MD - Last Filed: 07/07/25 20:41>
Past History
ED Past Medical History: Arrthythmia, HTN, Hypercholesterolemia, Valvular disease (Mitral valve prolapse) and Psychiatric (Anxiety)
ED Past Surgical History: Appendectomy and Gynecological (Hysterectomy)
Social History
Tobacco: Non-smoker
Alcohol: None
Personal:
Living: with family
Family History
Family History: Hypertension; Negative Early CAD or Sudden
Phy Exam
<Maliha Curry PA-C - Last Filed: 07/07/25 22:26>
General Physical Exam
General Presentation: well appearing and no apparent distress
General Skin: warm and dry
General Habitus: normal
General Mental: alert
General Hydration: appears well hydrated
ENT Exam
ENT Exam: EOMI, pharynx normal, neck supple and normocephalic
Eye Exam
Eye Exam: PERRL, cornea clear and conjunctiva normal
Cardiovascular Exam
Cardiovascular Exam: regular rate/rhythm, no edema, no murmur and normal peripheral pulses
Pulmonary Exam
Pulmonary Exam: lungs clear, no respiratory distress, no rales, no crackles, no rhonchi, no stridor, no wheezing and no cough
Gastrointestinal Exam
Gastrointestinal Exam: normal bowel sounds, non tender, soft, no organomegaly, no pulsatile mass and non distended
Neurological Exam
Neurological Exam: alert, oriented x3, no motor deficits and speech normal
Musculoskeletal Exam
Musculoskeletal Exam: full ROM and no edema
Skin Exam
Skin Exam: normal color, warm/dry, no rash and no petechia
Psychiatric Exam
Psychiatric Exam: normal mood/affect
Scores
<Jenaro Menjivar MD - Last Filed: 07/07/25 20:41>
[id number] Score for Afib Stroke Risk
Age in Years (65=0, 65-74=1, >/=75=2): > or = 75
Sex (Female=+1): Female
Congestive Heart Failure History (Yes=+1): No
Hypertension History (Yes=+1): Yes
Stroke/TIA/Thromboembolism History (Yes=+2): No
Vascular Disease History (Yes=+1): No
Diabetes Mellitus (Yes=+1): No
Score: 4
Anticoagulation Recommendations: Recommend anticoagulation (as validated in nonvalvular fib)
<Maliha Crury PA-C - Last Filed: 07/07/25 22:26>
[id number] Score for Afib Stroke Risk
Score: 4
Anticoagulation Recommendations: Recommend anticoagulation (as validated in nonvalvular fib)
Course
<Jenaro Menjivar MD - Last Filed: 07/07/25 20:41>
Orders/Labs/Results
Orders:
Orders
07/07/25 14:14
Electrocardiogram (*1) Urgent
Reason for Study: Atrial Fibrillation
07/07/25 14:15
EKG- Treatment ONCE
07/07/25 14:28
Complete Blood Count/With Diff Urgent
Comprehensive Metabolic Panel Urgent
PT/INR [Prothrombin Time] Urgent
Troponin I Urgent
07/07/25 17:08
Diltiazem HCl [Cardizem] 15 mg IV NOW STA
07/07/25 17:29
EKG [Electrocardiogram (*1)] Urgent
Reason for Study: Other
Other Reason for Exam: rhythm change s/p cardizem
07/07/25 17:30
EKG- Treatment ONCE
07/07/25 17:54
Apixaban [Eliquis] 5 mg PO ONCE ONE
Abnormal Lab Results
07/07/25
14:28
Hct 48.2 H %
(37.0-47.0)
MCHC 32.8 L g/dL
(33.0-37.0)
BUN 25 H mg/dl
(7-17)
Creatinine 1.3 H mg/dL
(0.6-1.0)
07/07/25 14:28
07/07/25 14:28
Vital Signs
Initial and Last Documented VS:
Initial Vital Signs
Temp Pulse Resp BP Pulse Ox
36.8 C 125 18 193/110 98
07/07/25 14:17 07/07/25 14:17 07/07/25 14:17 07/07/25 14:17 07/07/25 14:17
Last Documented Vital Signs
Temp Pulse Resp BP Pulse Ox
36.6 C 70 14 141/83 98
07/07/25 16:09 07/07/25 18:15 07/07/25 18:15 07/07/25 18:00 07/07/25 18:00
Espinozalt;Maliha Curry PA-C - Last Filed: 07/07/25 22:26>
Orders/Labs/Results
Orders:
Orders
07/07/25 14:14
Electrocardiogram (*1) Urgent
Reason for Study: Atrial Fibrillation
07/07/25 14:15
EKG- Treatment ONCE
07/07/25 14:28
Complete Blood Count/With Diff Urgent
Comprehensive Metabolic Panel Urgent
PT/INR [Prothrombin Time] Urgent
Troponin I Urgent
07/07/25 17:08
Diltiazem HCl [Cardizem] 15 mg IV NOW STA
07/07/25 17:29
EKG [Electrocardiogram (*1)] Urgent
Reason for Study: Other
Other Reason for Exam: rhythm change s/p cardizem
07/07/25 17:30
EKG- Treatment ONCE
07/07/25 17:54
Apixaban [Eliquis] 5 mg PO ONCE ONE
Abnormal Lab Results
07/07/25
14:28
Hct 48.2 H %
(37.0-47.0)
MCHC 32.8 L g/dL
(33.0-37.0)
BUN 25 H mg/dl
(7-17)
Creatinine 1.3 H mg/dL
(0.6-1.0)
07/07/25 14:28
07/07/25 14:28
Vital Signs
Initial and Last Documented VS:
Initial Vital Signs
Temp Pulse Resp BP Pulse Ox
36.8 C 125 18 193/110 98
07/07/25 14:17 07/07/25 14:17 07/07/25 14:17 07/07/25 14:17 07/07/25 14:17
Last Documented Vital Signs
Temp Pulse Resp BP Pulse Ox
36.6 C 70 14 141/83 98
07/07/25 16:09 07/07/25 18:15 07/07/25 18:15 07/07/25 18:00 07/07/25 18:00
<Maliha Curry PA-C - Last Filed: 07/07/25 22:26>
MDM/Problems Addressed
Differential Diagnosis Includes:
EKG shows A-fib with RVR and new ST depressions. Patient remains tachycardic to 130 on telemetry. Given a Cardizem bolus with improvement in her heart rates down to 60. Remains in a flutter. No longer experiencing any dizziness or palpitations.
She is agreeable to start anticoagulation and prescription for Eliquis has been sent to her pharmacy. She will have close follow-up with cardiology as an outpatient return precautions discussed
<Jenaro Menjivar MD - Last Filed: 07/07/25 20:41>
*Pulse Oximetry
SaO2: 98
Oxygen Mode of Delivery: Room air
<Maliha Curry PA-C - Last Filed: 07/07/25 22:26>
*Pulse Oximetry
Patient hypoxic: no
*Critical Care Note
Total Time (30-74mins, 75-104mins- exclusive of procedures): Not Applicable
ED Attending Note
<Jenaro Menjivar MD - Last Filed: 07/07/25 20:41>
ED Attending Note
Patient seen and examined by attending physician: Yes
ED Attending Note:
I have seen and evaluated the patient with a [id number] encounter. I have spoken to the advance practicer provider and involved in the medical history, the physical exam, medical decision making.
Evaluation and management service: agree unless noted differently below.
Results interpretation: agree unless noted differently below.
Focused HPI: 80-year-old female with history as noted presents to the ER for evaluation of dizziness consistent with prior A-fib symptoms. She reports onset of symptoms 2 days ago they have been constant since that time. Worse with positional
changes. She also reports some mild shortness of breath. Denies chest pain. She denies any swelling in the legs or weight gain. She denies any other acute complaints. She is on metoprolol for her A-fib and reports compliance without missed
doses. She is not on blood thinners�she says she was recommended to take Eliquis in the past but was resistant to take it because she did not want easy bruising. Denies any history of bleeding.
Physical exam: Awake and alert, not in distress. Was initially hypertensive but blood pressure normalized by my assessment. Tachycardic to the 120s a flutter with variable conduction on EKG. She has no edema in the legs. Faint systolic murmur
noted on cardiac auscultation. Lungs sound clear. No JVD.
Medical Decision Makin-year-old female presents for evaluation of palpitations, dizziness and mild shortness of breath consistent with prior A-fib symptoms. Vitals and exam are as above. EKG shows a flutter with variable conduction. Lab work
shows no clinically significant abnormalities. She does not appear to be in congestive heart failure. Suspect symptoms are from rapid atrial flutter. She was given IV diltiazem here and heart rate down into the 60s although she remains in a
flutter. She is now asymptomatic and at this point rate controlled no clear indication for hospitalization. Stable for discharge can follow-up with her insulation nozzleman. Had a long discussion with the patient about stroke risk and A-fib/flutter and I
explained that my recommendation is that she take anticoagulation at this point�her [id number] risk is 4. She indicated that she was agreeable to starting anticoagulation. Advised to follow-up with her primary insulation nozzleman and to call first
thing tomorrow for an appointment. She feels comfortable with this plan. We did speak about return precautions and all questions were answered.
-
Portions of this chart may have been created with voice recognition software.� Occasional wrong word or��sound alike� substitutions may have occurred due to the inherent limitations of voice recognition software.
Discharge Plan
Departure
Patient Disposition: Home (Routine Discharge)
Date of Disposition: 07/07/25
Time of Disposition: 17:59
Patient with high blood pressure during this ER visit?: Yes
Discharge Problem:
Atrial flutter
Instructions: Atrial flutter (DC)
Prescriptions:
New
Eliquis 5 mg tablet
5 mg PO BID Qty: 60 0RF
No Action
alprazolam 0.5 MG tablet
0.5 mg PO TIDPRN PRN (Reason: anxiety)
thyroid (pork) [Darling Thyroid] 30 MG tablet
30 mg PO DAILY
metoprolol succinate 50 mg tablet extended release 24 hr
50 mg PO BID
furosemide [Lasix] 20 mg tablet
20 mg PO DAILY
Referrals:
Bela Aragon, [Active, Cardiology] - Call in 1-3 days for appt
Activity Restrictions/Additional Instructions:
Thank you for visiting the Emergency Department at [facility].
1. Please schedule a follow up appointment as directed. Call first thing tomorrow morning to make an appointment.
2. If indicated, please take your medications as instructed and indicated on discharge paperwork.
3. If any of your symptoms do not improve, or persist, or become more severe within 6-12 hours, please return to the emergency department for further care.
4. Please return to the emergency department if you develop a headache, neck pain/stiffness, fever greater than 100.4F, chest pain, shortness of breath, persistent nausea, vomiting, slurred speech, difficulty walking, numbness/tingling, weakness,
signs of infection or any other symptoms that are worrisome to you.
Please call [phone] if you have any questions.
Interventions
Interventions:
*General Assessment Last Done: 07/07/25 14:17
*Neglect/Abuse Screening Last Done: 07/07/25 14:17
*ED COVID-19 Vaccine History Last Done: 07/07/25 14:17
*ED Influenza Vaccine History Last Done: 07/07/25 14:17
[facility] Risk Assessment Tool Last Done: 07/07/25 14:14
*Risk Screen - Suicide (C-SSRS) Last Done: 07/07/25 14:17
*Nursing Disposition Last Done: 07/07/25 19:24
ED- Pulmonary Assessment Last Done: 07/07/25 16:26
ED- Cardiac Assessment Last Done: 07/07/25 16:26
Discharge Date and Time
Discharge Date/Time: 07/07/25 19:24
Print Language: GREENLANDIC
[2025-07-07] MEDS: ELIQUIS 5 MG PO (18:20)
== END 2025-07-07 19:24 | disposition home or self-care (01) ==
LOC: EMR 14:14
PROVIDERS: EMERGENCY PHYSICIAN Emergency Medicine
DX: I48.92 Unspecified atrial flutter (principal); I48.0 Paroxysmal atrial fibrillation; I10 Essential (primary) hypertension; E78.00 Pure hypercholesterolemia, unspecified; I34.1 Nonrheumatic mitral (valve) prolapse; F41.9 Anxiety disorder, unspecified; Z79.01 Long term (current) use of anticoagulants; Z82.49 Family history of ischemic heart disease and other diseases of the circulatory system
CPT/HCPCS: 99284; 96374; 80053; 84484; 85025; 85610; 93005